=== PATIENT | female | born 1965 | race Caucasian/White ===

== ENCOUNTER 2017-02-08 11:08 | Emergency (ER) | payer OTHER, BC ==
[~2017-02-08] VITALS: Ht 162.6 cm; Wt 94.9 kg
[~2017-02-08 11:08] MED LIST: ACTONEL PO; ALLEGRA-D 241 TABLET PO; ATENOLOL/CHLOR1 EAC1 PO; CALCIUM 500 MG1 EACH PO; CEPHALEXIN500 MG PO; HYDROCODON-ACE1 EAC7 PO; IBRANCE125 MG PO; IBUPROFEN800 MG PO; LORAZEPAM1 MG PO; VICODIN 5-3001 EACH PO; VITAMIN D33000 UNIT PO
[2017-02-08 13:36] VITALS: BP 143/94
== END 2017-02-08 13:36 | disposition home or self-care (01) ==
LOC: EME 11:08 → EXP 11:08
DX: K08.89 Other specified disorders of teeth and supporting structures (principal); K02.9 Dental caries, unspecified; R22.0 Localized swelling, mass and lump, head; Z85.3 Personal history of malignant neoplasm of breast; I10 Essential (primary) hypertension
CPT/HCPCS: 99281; 99284